=== PATIENT | male | born 1950 | race Caucasian/White ===

== ENCOUNTER → 2020-08-23 12:01 | Outpatient (CLI) | payer OTHER, SELFPAY ==
--- NOTE | ~2020-08-23 | MR_ITS ---
EXAMINATION: MR lumbar spine wo/w con DATE: 08/23/2020 13:14 INDICATION: Right-sided low back pain. TECHNIQUE: Magnetic resonance imaging (MRI) of the lumbar spine was performed without with 18 mL Mult iHance intravenous contrast. Sequences included sagittal T2-weighted FSE, sagittal T2-weighted FS FSE , and sagittal and axial T1-weighted FSE. Postcontrast sequences included axial T2-weighted FSE and a xial and sagittal T1-weighted FS FSE. COMPARISON: Lumbar spine MRI 07/13/2016 FINDINGS: There is 6 degrees levocurvature of lumbar spine. There is a transitional segment at lumbos acral junction that is designated S1. There is 4 mm retrolisthesis of L3 on L4. There is mild chronic anterior wedging of T12 and L1 vertebral bodies. There is moderately decreased disc height at L3-L4, mildly decreased disc height at L4-L5, and severely decreased disc height at L5-S1 with endplate rem odeling. The distal spinal cord signal intensity is normal. The conus medullaris is at L2. The follow ing disc levels are specifically discussed: L1-L2: There is a left central extrusion. There is moderate bilateral facet joint osteoarthritis. The re is no neural foraminal stenosis. There is mild central canal stenosis. L2-L3: The disc is bulging and has an annular fissure. There is severe right and moderate left facet joint osteoarthritis. There is moderate bilateral neural foraminal stenosis. There is mild central ca nal stenosis. L3-L4: The disc is bulging and has an annular fissure. There is severe left facet joint osteoarthriti s. There is partial resection of the right facet joint, but there is residual hypertrophy. There is s evere right and moderate left neural foraminal stenosis. There is mild central canal stenosis. L4-L5: The disc is bulging and has an annular fissure. There is severe left facet joint osteoarthriti s. There is partial resection of the right facet joint, there is residual hypertrophy. There is moder ate bilateral neural foraminal stenosis. There is mild central canal stenosis. L5-S1: The disc is bulging and has an annular fissure. There is severe bilateral facet joint osteoart hritis. There is moderate bilateral neural foraminal stenosis. There is mild central canal stenosis. IMPRESSION: 1. Severe lumbar spondylosis with interval surgical changes. Reviewed, dictated and finalized at location A. SER ALL AROUND
[2020-08-23 12:44] LABS: Estimated Glomerular Filt Rate 54
== END ==
DX: M48.061 Spinal stenosis, lumbar region without neurogenic claudication (principal); M47.896 Other spondylosis, lumbar region
CPT/HCPCS: 72158; A9577

== ENCOUNTER 2020-12-02 10:35 | Outpatient (CLI) | payer OTHER, SELFPAY | END 2020-12-02 10:36 | disposition home or self-care (01) | PROVIDERS: PCP Internal Medicine; Visit Provider Specialist | DX: C44.91 Basal cell carcinoma of skin, unspecified (principal) | CPT/HCPCS: 88305 ==

== ENCOUNTER 2021-02-28 13:06 | Outpatient (CLI) | payer OTHER, SELFPAY | END 2021-02-28 13:07 | disposition home or self-care (01) | PROVIDERS: PCP Internal Medicine; Visit Provider Specialist | DX: L73.8 Other specified follicular disorders (principal) | CPT/HCPCS: 88305 ==

== ENCOUNTER 2021-07-04 10:08 | Outpatient (CLI) | payer OTHER, SELFPAY | END 2021-07-04 10:09 | disposition home or self-care (01) | PROVIDERS: PCP Internal Medicine; Visit Provider Specialist | DX: C44.321 Squamous cell carcinoma of skin of nose (principal) | CPT/HCPCS: 88305 ==

== ENCOUNTER 2021-12-05 10:41 | Outpatient (CLI) | payer OTHER, SELFPAY | END 2021-12-05 10:42 | disposition home or self-care (01) | LOC: CHSOUTPT 10:43 | PROVIDERS: PCP Internal Medicine; Visit Provider Specialist | DX: C44.41 Basal cell carcinoma of skin of scalp and neck (principal); L72.0 Epidermal cyst | CPT/HCPCS: 88305 ==

== ENCOUNTER 2022-03-06 14:28 | Outpatient (CLI) | payer OTHER, SELFPAY | END 2022-03-06 14:29 | disposition home or self-care (01) | LOC: CHSLAB 14:42 | PROVIDERS: PCP Family Medicine; Visit Provider Specialist | DX: C44.41 Basal cell carcinoma of skin of scalp and neck (principal) | CPT/HCPCS: 88305 ==

== ENCOUNTER 2022-04-23 01:41 | Day surgery (SDC) | payer OTHER, SELFPAY ==
[2022-04-10 14:27] VITALS: BMI 26.6
--- NOTE | 2022-04-10 14:45 | PC.NURSE ---
Patient was instructed to not take magnesium citrate and verbally confirmed to not take the magnesium citrate as part of the bowel prep.
--- NOTE | 2022-04-20 15:26 | PM.HPGS ---
History of Present Illness History of Present Illness Consent: Risks, benefits, and alternatives have been discussed and questions answered. Patient agrees to proceed with procedure. Chief complaint: neoplasm screening Narrative: Rangel Alcazar is a 71 year old male referred for colon cancer screening. Review of Systems Review of Systems: All systems reviewed & are unremarkable except as noted in HPI and below [facility] Surgical History Surgical History History of back surgery Social History Social History Smoking status: Never smoker Alcohol intake: former Substance use type: does not use Meds Home Medications and Allergies Home Medications Medication Instructions Recorded Confirmed Type aspirin 81 mg tablet,delayed 81 mg PO DAILY 09/17/19 04/23/22 History release (Adult Aspirin Regimen) amlodipine 10 mg tablet 10 mg PO DAILY #90 tabs 06/09/21 04/23/22 Rx escitalopram oxalate 10 mg tablet 10 mg PO DAILY #90 tabs 12/08/21 04/23/22 Rx tamsulosin 0.4 mg capsule 0.4 mg PO DAILY #90 caps 01/05/22 04/23/22 Rx simvastatin 20 mg tablet 20 mg PO DAILY #90 tabs 02/19/22 04/23/22 Rx doxycycline hyclate 50 mg capsule 50 mg PO DAILY 04/10/22 04/23/22 History alprazolam 0.25 mg tablet 0.25 mg PO TID PRN anxiety #90 tabs 04/20/22 04/23/22 Rx Allergies Allergy/AdvReac Type Severity Reaction Status Date / Time Sulfa (Sulfonamide Allergy Unknown Unknown Verified 04/23/22 09:15 Antibiotics) Exam Resp: Auscultation: clear to auscultation bilaterally Cardio: Rate: regular rate Rhythm: regular rhythm GI: GI Palp: Yes Soft to palpation and No Tenderness to palpation present (GI) Assessment and Plan Assessment and plan (1) Colon cancer screening: Code(s): Z12.11 - Encounter for screening for malignant neoplasm of colon Status: Acute Assessment and Plan: Colonoscopy with possible biopsy or polypectomy or cautery or injection of substances.
[2022-04-23 09:16] VITALS: BP 136/67; PULSE 77; RESP 18; TEMP 36.6; O2SAT 96
[2022-04-23] MEDS: LACTATED RINGERS 1,000 ML 150 ML IV CONT (09:19)
--- NOTE | 2022-04-23 10:37 | P.PNAN_ITS ---
Anes - Initial Pre Proc Eval Procedure: Operation Date: 04/23/22 10:30 Proposed Procedures p Screening Colonoscopy - John Summers MD Date/Time: 04/23/22 10:37 Surgeon: John Summers MD Pre Op Diagnosis: neoplasm screening Patient Data Age: 71 Gender: M Height: 1.83 m Weight: 85.2 kg Last Vital Signs Temp 97.8 F 04/23/22 09:16 Pulse 77 04/23/22 09:16 Resp 18 04/23/22 09:16 BP 136/67 04/23/22 09:16 Pulse Ox 96 04/23/22 09:16 O2 Del Method Room Air 04/23/22 09:16 Allergies Allergy/AdvReac Type Severity Reaction Status Date / Time Sulfa (Sulfonamide Allergy Unknown Unknown Verified 04/23/22 09:15 Antibiotics) Home Medications Medication Instructions Recorded Confirmed Type aspirin 81 mg tablet,delayed 81 mg PO DAILY 09/17/19 04/23/22 History release (Adult Aspirin Regimen) amlodipine 10 mg tablet 10 mg PO DAILY #90 tabs 06/09/21 04/23/22 Rx escitalopram oxalate 10 mg tablet 10 mg PO DAILY #90 tabs 12/08/21 04/23/22 Rx tamsulosin 0.4 mg capsule 0.4 mg PO DAILY #90 caps 01/05/22 04/23/22 Rx simvastatin 20 mg tablet 20 mg PO DAILY #90 tabs 02/19/22 04/23/22 Rx doxycycline hyclate 50 mg capsule 50 mg PO DAILY 04/10/22 04/23/22 History alprazolam 0.25 mg tablet 0.25 mg PO TID PRN anxiety #90 tabs 04/20/22 04/23/22 Rx Patient hx anesthesia problems: none Family hx anesthesia problems: none Results Review: All pre-operative results and documents have been reviewed as part of the pre- operative evaluation. [facility] Surgical History Surgical History History of back surgery Social History Social History Smoking status: Never smoker Alcohol intake: former Substance use type: does not use Anes - Eval Final PreProcedure Day of Procedure 04/23/22 10:37 Patient weight: normal Heart: regular rate and rhythm Lungs: clear to auscultation Airway: Mallampati scale class II Neurological: alert and oriented Last oral intake: >/= 8 hours ASA classification: II Emergent: no Anesthetic plan: proceed Anesthesia type and monitoring: general GIVS and standard monitoring Results Review: All pre-operative results and documents have been reviewed as part of the pre- operative evaluation. Informed Consent: The patient's anesthetic plan and its attendant risks and benefits were discussed with the patient/family/POA. Questions were solicited and answers provided to the satisfaction of the patient/family/POA.
[2022-04-23 10:42] VITALS: BP 111/53; PULSE 64; RESP 18; O2SAT 99
[2022-04-23 10:52] VITALS: BP 117/53; PULSE 69; RESP 16; O2SAT 97
[2022-04-23 11:02] VITALS: BP 115/54; PULSE 71; RESP 20; O2SAT 97
== END 2022-04-23 11:14 | disposition home or self-care (01) ==
PROVIDERS: PCP Family Medicine; Visit Provider Internal Medicine Gastroenterology
PROC: 0DJD8ZZ Inspection of Lower Intestinal Tract, Via Natural or Artificial Opening Endoscopic (ICD-10-PCS; CPT 45378; principal; 2022-04-23 10:30)
DX: Z12.11 Encounter for screening for malignant neoplasm of colon (principal); K57.30 Diverticulosis of large intestine without perforation or abscess without bleeding; Z79.82 Long term (current) use of aspirin
CPT/HCPCS: 45378; J2704; J7120

== ENCOUNTER 2022-05-28 13:44 | Outpatient (CLI) | payer OTHER, SELFPAY ==
[2022-05-28 20:39] LABS: Creatinine Urine 117.6 mg/dL; MALB Creatinine Ratio 153.9 mg/g (0-30)
== END 2022-05-28 13:45 | disposition home or self-care (01) ==
LOC: ANHGOSHLAB 13:47
PROVIDERS: PCP Family Medicine; Visit Provider Family Medicine
DX: E11.9 Type 2 diabetes mellitus without complications (principal)
CPT/HCPCS: 82043

== ENCOUNTER 2022-08-01 14:30 | Outpatient (RCR) | payer OTHER, SELFPAY | END 2022-08-01 18:15 | disposition home or self-care (01) | LOC: ANHDMC 14:30 | PROVIDERS: PCP Family Medicine; Visit Provider Family Medicine | DX: E11.65 Type 2 diabetes mellitus with hyperglycemia (principal); Z71.89 Other specified counseling | CPT/HCPCS: G0108; G0109 ==

== ENCOUNTER → 2022-09-24 11:25 | Outpatient (CLI) | payer OTHER, SELFPAY ==
--- NOTE | ~2022-09-24 | XR_ITS ---
Left Knee Technique: AP, lateral, and oblique views were obtained. Clinical History: Pain Findings: No fracture or dislocation is seen. Osseous alignment is anatomic. Joint spaces are preserv ed without degenerative or erosive change. Chondrocalcinosis of the menisci noted.. No joint effusion is seen. Impression: No fracture or dislocation. Chondrocalcinosis of the menisci. Reviewed, dictated and finalized at location . ER GIRDLER Impression: No fracture or dislocation. Chondrocalcinosis of the menisci.
== END ==
PROVIDERS: PCP Family Medicine; Visit Provider Nurse Practitioner Family
DX: M25.562 Pain in left knee (principal)
CPT/HCPCS: 73562

== ENCOUNTER 2022-10-18 14:20 | Outpatient (RCR) | payer OTHER, SELFPAY | END 2022-11-19 16:21 | disposition home or self-care (01) | LOC: ANHDMC 14:20 | PROVIDERS: PCP Family Medicine; Visit Provider Family Medicine | DX: E11.65 Type 2 diabetes mellitus with hyperglycemia (principal); Z71.89 Other specified counseling | CPT/HCPCS: G0109 ==

== ENCOUNTER 2023-03-14 11:48 | Outpatient (CLI) | payer OTHER, SELFPAY ==
[2023-03-14 14:44] LABS: Alanine Aminotransferase 19 U/L (6-50); Albumin Level 4.5 g/dL (3.5-5.1); Alkaline Phosphatase 53 U/L (38-126); Anion Gap 7 mmol/L (8-16); Aspartate Amino Transferase 35 U/L (17-59); Bilirubin,Total 0.5 mg/dL (0.2-1.3); Blood Urea Nitrogen 34 mg/dL (9-20); Calcium 9.6 mg/dL (8.4-10.2); Carbon Dioxide 30 mmol/L (22-30); Chloride 105 mmol/L (98-107); Cholesterol 152 mg/dL (0-200); Estimated Glomerular Filt Rate 50; Glucose 104 mg/dL (65-110); HDL Direct 28 mg/dL; Potassium 4.9 mmol/L (3.4-5.0); Sodium 142 mmol/L (137-145); Triglycerides 223 mg/dL (<150)
[2023-03-14 14:54] LABS: LDL Cholesterol Direct 80 mg/dL
[2023-03-14 15:07] LABS: Prostate Specific Antigen 0.7 ng/mL (< OR = 4.0)
[2023-03-14 16:08] LABS: Creatinine Urine 84.6 mg/dL
[2023-03-14 16:15] LABS: MALB Creatinine Ratio 12.2 mg/g (0-30); Microalbumin Urine Random 10.3 mg/L (0-16.7)
[2023-03-14 17:58] LABS: Hemoglobin A1C 5.5 % (<5.7)
== END 2023-03-14 11:49 | disposition home or self-care (01) ==
LOC: ANHGOSHLAB 11:49
PROVIDERS: PCP Family Medicine; Visit Provider Family Medicine
DX: Z13.220 Encounter for screening for lipoid disorders (principal); Z12.5 Encounter for screening for malignant neoplasm of prostate; E11.9 Type 2 diabetes mellitus without complications; Z13.228 Encounter for screening for other metabolic disorders
CPT/HCPCS: 36415; 80053; 80061; 82043; 83036; 84153; G0103

== ENCOUNTER 2023-08-06 10:37 | Emergency (ER) | payer OTHER, SELFPAY ==
[2023-08-06] VITALS (16 sets, daily range): BP systolic 122–135; BP diastolic 67–76; PULSE 69–86; RESP 12–29; TEMP 36.6; O2SAT 94–98
--- NOTE | ~2023-08-06 | XR_ITS ---
EXAMINATION: XR chest 1V portable 08/06/2023 11:39 INDICATION: Chest pain PROCEDURE: AP portable chest COMPARISON: No prior studies for comparison. FINDINGS: The lungs are clear. The cardiomediastinal silhouette is within normal limits. There are no pleural effusions. There is no pneumothorax suspected. IMPRESSION: 1: NO ACUTE CARDIOPULMONARY DISEASE. Reviewed, dictated and finalized at location L. PT GIRL
--- NOTE | 2023-08-06 10:47 | ED.CHESTPAIN ---
HPI - Chest Pain General Chief Complaint: Chest Pain Stated Complaint: chest pain Time Seen by Provider: 08/06/23 10:47 Source: patient Mode of arrival: ambulatory Limitations: no limitations History of Present Illness HPI narrative: 73-year-old male with a history of hypertension, diabetes mellitus, dyslipidemia, BPH, anxiety/ depression presents to the ER with -- left2/3 costochondral /substernal chest pain which started this morning. Pain is worse on deep breathing and coughing. The pain is sharp and short-lived. No relation to activity. No fever or chills. No cough or sputum production. MD complaint: chest pain Onset (ago): hour(s) ( Started 4 hours ago) Timing of current episode: episodic Prior episodes: No Onset: during rest Pain location: substernal and left chest Pain radiation: none Severity: moderate Quality: sharp Relieving factors: nothing Exacerbating factors: inspiration Context: recent illness ( recent nasal congestion) Treatment prior to arrival: none Risk Factors Coronary artery disease risk factors: hyperlipidemia and hypertension Thoracic aortic dissection risk factors: longstanding hypertension Related Data Home Medications Medication Instructions Recorded Confirmed aspirin 81 mg tablet,delayed 81 mg PO DAILY 09/17/19 08/06/23 release (Adult Aspirin Regimen) doxycycline hyclate 50 mg capsule 50 mg PO DAILY 04/10/22 08/06/23 Allergies Allergy/AdvReac Type Severity Reaction Status Date / Time Sulfa (Sulfonamide Allergy Unknown Other Verified 08/06/23 10:47 Antibiotics) Review of Systems Review of Systems: All systems reviewed & are unremarkable except as noted in HPI and below Constitutional: Constitutional: Reports as per HPI and Reports no additional constitutional complaints Eyes: Eyes: Reports as per HPI and Reports no additional eye complaints ENT: Reports system reviewed and no additional complaints, except as documented and Reports as per HPI Cardiovascular: Cardiovascular: Reports as per HPI, Reports no additional cardiovascular complaints and Reports chest pain Respiratory: Respiratory: Reports as per HPI and Reports no additional respiratory complaints Gastrointestinal: Gastrointestinal: Reports as per HPI and Reports no additional gastrointestinal complaints Genitourinary: Genitourinary: Reports no additional male genitourinary complaints and Reports as per HPI Musculoskeletal: Musculoskeletal: Reports no additional musculoskeletal complaints and Reports as per HPI Integumentary/Breasts: Skin/Breast: Reports system reviewed and no additional complaints, except as docu and Reports as per HPI Neurologic: Reports system reviewed and no additional complaints, except as documented and Reports as per HPI Psychiatric: Psychiatric: Reports no additional psychiatric complaints and Reports as per HPI Endocrine: Endocrine: Reports no additional endocrine complaints and Reports as per HPI Hematologic/Lymphatic: Hematologic/Lymphatic: Reports no additional hematologic/lymphatic complaints and Reports as per HPI Allergic/Immunologic: Allergic/Immunologic: Reports no additional allergic/immunologic complaints and Reports as per HPI [facility] Surgical History Surgical History History of back surgery Family History Family History Mother Breast cancer Acute leukemia Hepatitis Heart disease Hypertension Social History Social History Social History: Rangel is . 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 Caffeine-decaf coffee Smoking status: Never smoker Alcohol intake: former Substance use: never Substance use type: does not use Lack of Transportation: No Lack of Food: Never True Current Housing: I Have Housing Concerned About Future Housing: No Difficulty
--- NOTE | 2023-08-06 11:03 | ECG_ITS ---
Measurements Intervals [place] Rate: 75 P: 50 ND: 149 QRS: 63 QRSD: 110 T: 59 QT: 365 QTc: 410 Interpretive Statements SINUS RHYTHM PROBABLE INFERIOR MYOCARDIAL INFARCTION , PROBABLY OLD [35 ms Q WAVE IN II/aVF] NO PREVIOUS ECG AVAILABLE FOR COMPARISON Electronically Signed On 08-06-2023 13:20:21 TOLL BOOTH OPERATOR by Enid Montes M.D.
[2023-08-06 11:22] LABS: Basophils Absolute Auto 0.06 K/mm3 (0.00-0.10); Basophils Percent Auto 0.8 % (0.0-1.0); Eosinophils Absolute Auto 0.14 K/mm3 (0.02-0.50); Hematocrit 43.2 % (37.0-46.0); Hemoglobin 14.4 g/dL (12.4-15.3); Immature Granulocyte Absolute 0.03 K/mm3 (0.00-0.00); Immature Granulocyte Percent A 0.4 % (0.0-0.0); Lymphocytes Absolute Auto 1.85 K/mm3 (1.10-4.50); Lymphocytes Percent Auto 25.8 % (18.0-42.0); Mean Corpuscular HGB Conc 33.3 g/dL (32.0-36.0); Mean Platelet Volume 10.1 fl (8.7-11.0); Monocytes Absolute Auto 0.68 K/mm3 (0.10-0.90); Monocytes Percent Auto 9.5 % (2.0-11.0); Neutrophils Absolute Auto 4.4 K/mm3 (1.7-7.2); Neutrophils Percent Auto 61.5 % (50.0-70.0); Platelet Count Result 232 K/mm3 (150-420); White Blood Count 7.2 K/mm3 (4.8-10.8)
[2023-08-06 11:34] LABS: D Dimer 0.43 mg/L (0.19-0.50)
[2023-08-06 11:41] LABS: Lactic Acid Reflex 0.9 mmol/L (0.4-2.0)
[2023-08-06 11:43] LABS: Alanine Aminotransferase 24 U/L (16-63); Albumin Level 3.9 g/dL (3.4-5.0); Alkaline Phosphatase 47 U/L (46-116); Anion Gap 3 mmol/L (8-16); Aspartate Amino Transferase 13 U/L (15-37); Bilirubin,Total 0.5 mg/dL (0.00-1.00); Blood Urea Nitrogen 28 mg/dL (7-18); Calcium 9.2 mg/dL (8.5-10.1); Carbon Dioxide 33 mmol/L (21-32); Chloride 101 mmol/L (98-108); Estimated CRCL calculation 44 ml/min; Estimated Glomerular Filt Rate 47; Glucose 103 mg/dL (70-99); Osmolality Calculated 289 mOsm/kg (285-295); Potassium 4.8 mmol/L (3.5-5.1); Sodium 137 mmol/L (136-145); Troponin I 6.4 ng/L (0.00-60.4)
[2023-08-06 11:49] LABS: Appearance Urine Clear (Clear); Bilirubin Urine Negative (Negative); Blood Urine Negative (Negative); Color Urine Yellow (Yellow); Glucose Urine UA Negative (Negative); Ketones Urine Negative (Negative); Leukocyte Esterase Ur Negative LEU/UL (Negative); Nitrate Urine Negative (Negative); Protein Urine Negative (Negative); Urobilinogen Urine 0.2 mg/dL (0.2-1.0)
[2023-08-06 11:50] LABS: Add Urine Microscopic? NO
--- NOTE | 2023-08-06 11:57 | PC.NURSE ---
PT IS LYING ON STRETCHER IN EXAM ROOM WITH MONITOR IN PLACE. PT DENIES ANY NEEDS OR COMPLAINTS. PT REPORTS PAIN IS MUCH BETTER AT REST. PT IS AWAITING RESULTS AT THIS TIME. NAD NOTED. WILL CONTINUE TO MONITOR.
[2023-08-06 12:11] LABS: NT Pro B Type Natriuretic Pept 100 pg/mL (0-125)
== END 2023-08-06 13:30 | disposition home or self-care (01) ==
PROVIDERS: Emergency Provider Internal Medicine Critical Care Medicine; PCP Family Medicine
DX: M94.0 Chondrocostal junction syndrome [Tietze] (principal); I12.9 Hypertensive chronic kidney disease with stage 1 through stage 4 chronic kidney disease, or unspecified chronic kidney disease; E11.22 Type 2 diabetes mellitus with diabetic chronic kidney disease; N18.32 Chronic kidney disease, stage 3b; E78.5 Hyperlipidemia, unspecified; Z79.899 Other long term (current) drug therapy; Z79.82 Long term (current) use of aspirin
CPT/HCPCS: 36415; 71045; 80053; 81003; 83605; 83880; 84484; 85025; 85380; 93005; 99284

== ENCOUNTER 2023-09-13 07:10 | Outpatient (CLI) | payer OTHER, SELFPAY ==
--- NOTE | 2023-09-13 07:17 | ECHO_ITS ---
Patient Info Name: Rangel Alcazar Age: 73 years : 1950 Gender: Male Ht: 72 in Wt: 185 lbs BSA: 2.07 m2 HR: 92 bpm BP: 150 / 72 mmHg Heart Rhythm: Sinus Rhythm Technical Quality: Fair Exam Date: 09/13/2023 7:46 AM Exam Location: Echo Lab Patient Status: Outpatient Admit Date: 09/13/2023 Staff Ordering Physician: Eagle Tinoco DO Filling Room Operator: Beatriz Martinez RDCS Attending Provider: Eagle Tinoco DO Referring Physician: Alejandrina RIGGS; Exam Type: CA echo doppler color flow Study Info Indications R07.9 - Chest pain, unspecified Complete two-dimensional, color flow and Doppler transthoracic echocardiogram is performed. Summary 1. Complete two-dimensional, color flow and Doppler transthoracic echocardiogram is performed. 2. Left ventricular chamber dimension is normal. 3. Left ventricular systolic function is normal, estimated at 65-70%. 4. The left ventricular diastolic function is grade I diastolic dysfunction. 5. E/e' 8 is minimally elevated. 6. There is mild aortic valve sclerosis. 7. The mitral valve has moderately calcified annulus. 8. No pulmonary hypertension, estimated pulmonary arterial systolic pressure is 14 mmHg. Left Ventricle E/e' 8 is minimally elevated. Left ventricular chamber dimension is normal. Left ventricular systolic function is normal, estimated at 65-70%. The left ventricular diastolic function is grade I diastolic dysfunction. Right Ventricle Right ventricular systolic function is normal and with normal TAPSE 2.4 cm. Right ventricular chamber dimension is normal. Left Atria Left atrial chamber dimension is normal. Right Atria Right atrial chamber dimension is normal. Aortic Valve The aortic valve is trileaflet. There is mild aortic valve sclerosis. There is no aortic valve stenosis. There is no aortic valve regurgitation. Pulmonic Valve There is no pulmonic regurgitation. Mitral Valve The mitral valve has moderately calcified annulus. There is no mitral valve stenosis. There is no mitral valve regurgitation. Tricuspid Valve There is no tricuspid valve regurgitation. No pulmonary hypertension, estimated pulmonary arterial systolic pressure is 14 mmHg. Pericardium/Pleural There is no pericardial effusion. Inferior Vena Cava Normal inferior vena cava with >50% collapse upon inspiration consistent with normal right atrial pressure, 5 mmHg. Aorta The aortic root size at the sinus of Valsalva is normal. Left Ventricular Outflow Tract Name Value Normal LVOT 2D LVOT Diameter 2.4 cm LVOT Doppler LVOT Peak Gradient 3 mmHg LVOT Mean Gradient 2 mmHg LVOT VTI 18 cm LVOT VTI/AV VTI Ratio 0.8 LVOT Stroke Volume 79 ml LVOT CO 6.1 l/min LVOT CI 3.0 l/min/m2 Pulmonic Valve Name Value Normal RVOT Doppler
--- NOTE | 2023-09-13 08:46 | EST_ITS ---
Patient Info Name: Rangel Alcazar Age: 73 years : 1950 Gender: Male Ht: 72 in Wt: 185 lbs BSA: 2.07 m2 HR: 76 bpm BP: 134 / 72 mmHg Heart Rhythm: Sinus Rhythm Exam Date: 09/13/2023 8:59 AM Exam Location: Echo Lab Patient Status: Outpatient Admit Date: 09/13/2023 Staff Ordering Physician: Eagle Tinoco DO Attending Provider: Eagle Tinoco DO Exercise Technologist: Amina Burns CT Exercise Physician: Facundo Sawyer DO Exam Type: CA stress test treadmill Study Info Indications R07.89 - Other chest pain A treadmill exercise stress test was performed. Summary 1. 1. Negative [place] exercise stress test for ischemic ST changes by ECG criteria. 2. 2. Good functional capacity, achieving 8 METs of workload. 3. 3. Appropriate HR response to exercise. 4. 4. Appropriate HR recovery at 1 minute post exercise. 5. 5. No imaging with stress testing. 6. 6. Patient informed of the above results. Protocol: [place] Stress ECG Details Stage: REST Duration (min): 1 min : 6 sec Speed (mph): 0.0 Grade (%): 0 HR (bpm): 75 SBP (mmHg): 134 DBP (mmHg): 72 METS: --- Stage: REST Duration (min): 6 min : 13 sec Speed (mph): 0.0 Grade (%): 0 HR (bpm): 80 SBP (mmHg): 134 DBP (mmHg): 72 METS: --- Stage: STAGE 1 Duration (min): 1 min : 0 sec Speed (mph): 1.7 Grade (%): 10 HR (bpm): 102 SBP (mmHg): 134 DBP (mmHg): 72 METS: --- Stage: STAGE 1 Duration (min): 2 min : 0 sec Speed (mph): 1.7 Grade (%): 10 HR (bpm): 107 SBP (mmHg): 134 DBP (mmHg): 72 METS: --- Stage: STAGE 1 Duration (min): 3 min : 0 sec Speed (mph): 1.7 Grade (%): 10 HR (bpm): 106 SBP (mmHg): 152 DBP (mmHg): 61 METS: --- Stage: STAGE 2 Duration (min): 1 min : 0 sec Speed (mph): 2.5 Grade (%): 12 HR (bpm): 110 SBP (mmHg): 152 DBP (mmHg): 61 METS: --- Stage: STAGE 2 Duration (min): 2 min : 0 sec Speed (mph): 2.5 Grade (%): 12 HR (bpm): 113 SBP (mmHg): 152 DBP (mmHg): 61 METS: --- Stage: STAGE 2 Duration (min): 3 min : 0 sec Speed (mph): 2.5 Grade (%): 12 HR (bpm): 118 SBP (mmHg): 177 DBP (mmHg): 50 METS: --- Stage: STAGE 3 Duration (min): 0 min : 53 sec Speed (mph): 3.4 Grade (%): 14 HR (bpm): 126 SBP (mmHg): 170 DBP (mmHg): 49 METS: --- Stage: RECOVERY Duration (min): 0 min : 6 sec Speed (mph): 1.5 Grade (%): 0 HR (bpm): 128 SBP (mmHg): 170 DBP (mmHg): 49 METS: --- Stage: RECOVERY Duration (min): 1 min : 6 sec Speed (mph): 0.0 Grade (%): 0 HR (bpm): 112 SBP (mmHg): 170 DBP (mmHg): 49 METS: --- Stage: RECOVERY Duration (min): 2 min : 6 sec Speed (mph): 0.0 Grade (%): 0 HR (bpm): 104 SBP (mmHg): 170 DBP (mmHg): 49 METS: --- Stage: RECOVERY Duration (min): 3 min : 6 sec Speed (mph): 0.0 Grade (%): 0 HR (bpm): 95 SBP (mmHg): 181 DBP (mmHg): 55 METS: --
== END 2023-09-13 07:11 | disposition home or self-care (01) ==
LOC: ANHCARD 07:10
PROVIDERS: PCP Family Medicine; Visit Provider Family Medicine
DX: R07.9 Chest pain, unspecified (principal)
CPT/HCPCS: 93017; 93306

== ENCOUNTER 2024-07-07 11:09 | Outpatient (CLI) | payer OTHER, SELFPAY ==
[2024-07-07 19:06] LABS: Alanine Aminotransferase 17 U/L (6-50); Albumin Level 4.4 g/dL (3.5-5.1); Alkaline Phosphatase 59 U/L (38-126); Anion Gap 12 mmol/L (4-12); Aspartate Amino Transferase 44 U/L (17-59); Bilirubin,Total 0.5 mg/dL (0.2-1.3); Blood Urea Nitrogen 39 mg/dL (9-20); Calcium 9.4 mg/dL (8.4-10.2); Carbon Dioxide 30 mmol/L (22-30); Chloride 100 mmol/L (98-107); Cholesterol 175 mg/dL (0-200); Estimated Glomerular Filt Rate 49; Glucose 94 mg/dL (65-110); HDL Direct 26 mg/dL; Potassium 4.6 mmol/L (3.4-5.0); Sodium 142 mmol/L (137-145); Triglycerides 336 mg/dL (<150)
[2024-07-07 19:16] LABS: LDL Cholesterol Direct 88 mg/dL
[2024-07-07 19:32] LABS: Prostate Specific Antigen 0.8 ng/mL (< OR = 4.0)
== END 2024-07-07 11:10 | disposition home or self-care (01) ==
LOC: ANHGOSHLAB 11:11
PROVIDERS: PCP Internal Medicine; Visit Provider Family Medicine
DX: Z13.220 Encounter for screening for lipoid disorders (principal); Z13.228 Encounter for screening for other metabolic disorders; Z12.5 Encounter for screening for malignant neoplasm of prostate
CPT/HCPCS: 36415; 80053; 80061; 84153; G0103